=== PATIENT | male | born 1985 | race Hispanic/Latino ===

== ENCOUNTER → 2025-05-13 14:28 | Outpatient (CLI) | payer OTHER, SELFPAY ==
--- NOTE | 2025-05-13 14:47 | DI.RAD.S_ITS ---
PROCEDURE: XR FOOT RT MIN 3V INDICATIONS: FT ANKLE/FOOT PAIN TECHNIQUE: 3 views of the foot were acquired. COMPARISON: [facility], CR, XR ANKLE RT MIN 3V, 05/13/2025, 14:54. FINDINGS: Bones: The known distal fibular fracture is not well seen. No fractures of the bones of the foot can be seen, including involving the proximal 5th metatarsal. Soft tissues: No tibiotalar joint effusion. Achilles tendon appears normal. IMPRESSION: The known distal fibular fracture is not well seen. No foot fractures are seen. Dictated by: Bj Conklin M.D. on 05/13/2025 at 14:23 Approved by: Bj Conklin M.D. on 05/13/2025 at 14:23
--- NOTE | 2025-05-13 14:47 | DI.RAD.S_ITS ---
PROCEDURE: XR ANKLE RT MIN 3V INDICATIONS: rt ankle/foot pain TECHNIQUE: 3 views of the ankle were acquired. COMPARISON: [facility], , XR FOOT RT MIN 3V, 05/13/2025, 14:54. FINDINGS: Bones: There is a mildly displaced intra-articular fracture seen involving the distal fibula. No additional fractures are detected. The talar dome demonstrates no aramis abnormality. Soft tissues: Soft tissue swelling is seen laterally. IMPRESSION: Distal fibular fracture, with intra-articular involvement and overlying soft tissue swelling. Dictated by: Bj Conklin M.D. on 05/13/2025 at 14:22 Approved by: Bj Conklin M.D. on 05/13/2025 at 14:23
== END ==
PROVIDERS: Family Provider Family Medicine; PCP Nurse Practitioner; Referring Provider Nurse Practitioner; Visit Provider Nurse Practitioner
DX: S82.831A Other fracture of upper and lower end of right fibula, initial encounter for closed fracture (principal); S93.401A Sprain of unspecified ligament of right ankle, initial encounter; M79.89 Other specified soft tissue disorders; X58.XXXA Exposure to other specified factors, initial encounter
CPT/HCPCS: 73610; 73630

== ENCOUNTER → 2025-05-17 09:26 | Outpatient (CLI) | payer OTHER, SELFPAY ==
--- NOTE | 2025-05-17 10:38 | DI.CT.S_ITS ---
PROCEDURE: CT FOOT RIGHT WITHOUT CON INDICATIONS: Right fibula TECHNIQUE: Noncontrast 1-1.5 mm axial sections acquired from above the tibiotalar joint to the bottom of the calcaneus, with coronal and sagittal reformats. COMPARISON: [facility], CR, XR ANKLE RT MIN 3V, 05/13/2025, 14:54. FINDINGS: Image quality: Excellent. Transverse acute fracture of the distal fibula below the level of the syndesmosis. No tibiotalar widening. No dislocation. Mild degenerative changes at the 1st MTP joint. Mild diffuse subcutaneous edema. Small tibiotalar effusion. Small hematoma along the lateral ankle in the subcutaneous space. IMPRESSION: Acute Frank a fibular fracture. Dictated by: Skip Szymanski M.D. on 05/17/2025 at 13:43 Approved by: Skip Szymanski M.D. on 05/17/2025 at 13:46
== END ==
PROVIDERS: Family Provider Family Medicine; PCP Nurse Practitioner; Referring Provider Nurse Practitioner; Visit Provider Nurse Practitioner
DX: S82.421A Displaced transverse fracture of shaft of right fibula, initial encounter for closed fracture (principal)
CPT/HCPCS: 73700

== ENCOUNTER → 2025-06-15 08:41 | Outpatient (CLI) | payer OTHER, SELFPAY ==
--- NOTE | 2025-06-15 08:44 | DI.RAD.S_ITS ---
PROCEDURE: XR ANKLE RT MIN 3V INDICATIONS: S82.831 TECHNIQUE: 3 views of the ankle were acquired. COMPARISON: [facility], CR, XR ANKLE RT MIN 3V, 05/13/2025, 14:54. FINDINGS: Bones: Nondisplaced transverse fracture lateral malleolus shows modest progression osseous union since prior exam over 1 month ago. There are no other osseous abnormalities. Tibiotalar and talocalcaneal joints: Normal in width and alignment without arthritic change. Soft tissues: No soft tissue swelling, calcification or mass. IMPRESSION: Nondisplaced transverse fracture lateral malleolus showing progression osseous union since comparison x-ray over 1 month ago. Dictated by: Rehan Restrepo M.D. on 06/16/2025 at 12:54 Approved by: Rehan Restrepo M.D. on 06/16/2025 at 12:55
--- NOTE | 2025-06-15 08:44 | DI.RAD.S_ITS ---
PROCEDURE: XR TIBIA FUBULA RT 2V INDICATIONS: S82.831 TECHNIQUE: 2 views of the tibia and fibula were acquired. COMPARISON: None. FINDINGS: Bones: There are no osseous abnormalities Joints: The joint spaces are normal in width and alignment without arthritic change. Soft tissues: No soft tissue abnormality. IMPRESSION: Normal right tibia fibula. Note: Ankle portion of the exam has been excluded. If this is the point of pain suggest additional ankle films Dictated by: Rehan Restrepo M.D. on 06/16/2025 at 12:55 Approved by: Rehan Restrepo M.D. on 06/16/2025 at 12:56
== END ==
PROVIDERS: Family Provider Family Medicine; PCP Nurse Practitioner; Visit Provider Nurse Practitioner
DX: S82.831D Other fracture of upper and lower end of right fibula, subsequent encounter for closed fracture with routine healing (principal); X58.XXXD Exposure to other specified factors, subsequent encounter
CPT/HCPCS: 73590; 73610